=== PATIENT | female | born 1950 | race Caucasian/White ===

== ENCOUNTER → 2018-04-24 10:34 | Outpatient (CLI) | payer MEDICARE ==
--- NOTE | ~2018-04-24 | ST ---
PATIENT:FARHAN CORRALES MEDICAL RECORD: [id number] SEX: F LOCATION:[facility] ORDER #: ADMISSION DATE: 04/24/18 AGE OF PATIENT: 68 REFERRING PHYSICIAN: INTERPRETING PHYSICIAN: BELEN GOODMAN MD DATE OF SERVICE: 04/24/2018 PROCEDURE: Nuclear Stress Test. INDICATION: Chest pain, shortness of breath, abnormal ECG, family history of coronary artery disease. It was pharmacologic. DESCRIPTION: The patient was exercised on standard Lexiscan protocol with 33 mCi injected at peak stress, 11 mCi used previously for rest images. FINDINGS: Gated SPECT reveals preserved ejection fraction at 60% with good wall motioning and thickening and brightening throughout all segments. SPECT imaging Cardiolite was used as myocardial fusion agent. There is homogeneous uptake throughout all segments at rest and stress with no evidence of inducible ischemia or previous infarction. OVERALL IMPRESSION: 1. This is a normal nuclear stress test with no evidence of inducible ischemia or previous infarction. 2. Gated SPECT reveals a preserved ejection fraction at 60%. In this patient with ongoing symptomatology, the current scan does not suggest the presence of hemodynamically significant coronary artery disease. Evaluate noncardiac etiology of chest pain. TRANSINT:[id number] Voice Confirmation ID: [id number] DOCUMENT ID: [id number] BELEN GOODMAN MD at 1718 CC: [id number] DICTATION DATE: 04/24/18 1645 [facility]: 04/25/18 0742 [facility] CLI 04/24/18 [place] [id number]
== END | disposition home or self-care (01) ==
LOC: D.HCCARDIO 10:30
DX: I20.9 Angina pectoris, unspecified (principal)

== ENCOUNTER → 2018-08-01 15:17 | Outpatient (CLI) | payer MEDICARE | END | disposition home or self-care (01) | LOC: D.US 15:17 | PROVIDERS: ATTEND Internal Medicine Hematology & Oncology | DX: I82.493 Acute embolism and thrombosis of other specified deep vein of lower extremity, bilateral (principal); C91.90 Lymphoid leukemia, unspecified not having achieved remission; C83.30 Diffuse large B-cell lymphoma, unspecified site ==

== ENCOUNTER → 2018-08-08 09:54 | Outpatient (CLI) | payer MEDICARE | END | disposition home or self-care (01) | LOC: D.CT 09:54 | PROVIDERS: ATTEND Internal Medicine Hematology & Oncology | DX: I82.493 Acute embolism and thrombosis of other specified deep vein of lower extremity, bilateral (principal) ==

== ENCOUNTER → 2018-08-31 07:14 | Outpatient (CLI) | payer MEDICARE | END | disposition home or self-care (01) | LOC: D.NM 07:14 | PROVIDERS: ATTEND Internal Medicine Hematology & Oncology | DX: C83.30 Diffuse large B-cell lymphoma, unspecified site (principal); M19.90 Unspecified osteoarthritis, unspecified site ==

== ENCOUNTER → 2018-09-19 10:47 | Outpatient (CLI) | payer MEDICARE | END | disposition home or self-care (01) | LOC: D.NM 10:47 | PROVIDERS: ATTEND Internal Medicine Gastroenterology | DX: R10.9 Unspecified abdominal pain (principal) ==

== ENCOUNTER → 2018-10-26 08:56 | Outpatient (CLI) | payer MEDICARE | END | disposition home or self-care (01) | LOC: D.US 10-19 10:00 | PROVIDERS: ATTEND Internal Medicine Gastroenterology | DX: R10.9 Unspecified abdominal pain (principal) ==

== ENCOUNTER → 2018-11-23 09:07 | Outpatient (CLI) | payer MEDICARE | END | disposition home or self-care (01) | LOC: D.RAD 09:07 | PROVIDERS: ATTEND Internal Medicine Gastroenterology | DX: K21.9 Gastro-esophageal reflux disease without esophagitis (principal); R13.10 Dysphagia, unspecified ==